=== PATIENT | female | born 2000 | race Caucasian/White ===

== ENCOUNTER → 2023-12-11 | Outpatient (CLI) | payer OTHER, SELFPAY ==
--- NOTE | 2023-12-11 08:59 | EKG12_ITS ---
Test Reason : PALP, SOB Blood Pressure : / mmHG Vent. Rate : 091 BPM Atrial Rate : 091 BPM P-R Int : 148 ms QRS Dur : 084 ms QT Int : 374 ms P-R-T Axes : 062 087 018 degrees QTc Int : 460 ms Normal sinus rhythm Low voltage QRS Borderline ECG Confirmed by CARLOS HAYWARD, CHRISTOPHER ([id number]), photograph editor BRIDGETT MENDOZA ([id number]) on 12/13/2023 6:23:27 AM Referred By: CYRUS HOLLINS Confirmed By:CHRISTOPHER GONZALEZ MD
== END | disposition home or self-care (01) ==
LOC: PSN 08:56
PROVIDERS: PCP Physician Assistant
DX: R06.02 Shortness of breath (principal); R00.2 Palpitations
CPT/HCPCS: 93005